=== PATIENT | male | born 1965 | race Caucasian/White ===

== ENCOUNTER 2016-09-17 21:12 | Inpatient (IN) | payer OTHER ==
[~2016-09-17] VITALS: Ht 175.3 cm; Wt 101.1 kg
[2016-09-17] MEDS ORDERED: MoRPHine SULFATE 4 MG/ML 1 ML CARP\\VIAL IV STA ×2 (21:39→23:26)
[2016-09-17] MEDS ORDERED: ONDANSETRON INJ 2 MG/ML 2 ML VIAL IV STA (21:39)
[2016-09-17] MEDS ORDERED: SODIUM CHLORIDE 0.9% 1000ML 1,000 ML IV STA (21:39)
[2016-09-17 21:55] LABS: BASO % 0.3 %; BASO ABS # 0.05 K/uL (0-0.2); COMPLETE YES; EOS % 1.5 %; HEMATOCRIT 45.5 % (42-52); IG% 0.3 %; LYMPH % 17.8 %; LYMPH ABS # 2.85 K/uL (1.2-3.4); MEAN CELL VOLUME 90.1 fL (80-100); MEAN CORPUSCULAR HEMOGLOBIN 32.1 pg (25-34); MEAN CORPUSCULAR HGB CONC 35.6 g/dl (32-36); MONO % 7.2 %; NEUT % 72.9 %; PLATELET COUNT 258 K/uL (130-400); RED BLOOD COUNT 5.05 M/uL (4.7-6.1)
[2016-09-17] MEDS ORDERED: IBUP-1050 PO (21:58)
[2016-09-17 22:19] LABS: CALCIUM 8.9 mg/dl (8.5-10.1); CREATININE 1.2 mg/dl (0.60-1.40); POTASSIUM 3.8 mmol/L (3.5-5.1)
[2016-09-17] MEDS ORDERED: OPTIRAY 320 IV PRN (22:30)
--- NOTE | 2016-09-17 22:49 | DIAGNOSTIC IMAGING REPORT ---
ABDOMEN AND PELVIS CT WITH IV CONTRAST CT DOSE: 845.56 mGy.cm HISTORY: Abscess eval lower abd cutaneous abscess TECHNIQUE: Multiaxial CT images of the abdomen and pelvis were performed following the use of intravenous contrast. COMPARISON STUDY: None. FINDINGS: Lung bases are clear. Liver spleen and pancreas enhance uniformly. Several slightly hyperemic loops of small bowel are present in the left central abdominal region. This consistent with a nonspecific enteritis and/or mild nonobstructive ileus. Bladder is midline. There is no free fluid within the pelvic cul-de-sac. There is no significant abdominal pelvic or inguinal adenopathy area Within the subcutaneous fat anterior to the symphysis pubis on the right is narrowing of infiltrative change consistent with a cellulitis type process. This measures approximately 11 x 4 cm. A well-defined drainable abscess or collection is not appreciated. IMPRESSION: 1. 11 x 4 cm region of cellulitis and/or infiltrative-type change subcutaneous fat anterior and somewhat superior to the right central symphysis pubis region. 2. No evidence for drainable abscess or collection. 3. Mild reactive small bowel ileus versus enteritis. 4. No evidence for extension of the subcutaneous fat process to the intra-pelvic or intra- abdominal region. Electronically signed by: Viet Haro M.D. 09/17/2016 10:47 PM
[2016-09-17] MEDS ORDERED: PIPERACILLIN/TAZOBACTAM 4.5 GM/100ML D5W IV STA (22:54)
[2016-09-17] MEDS ORDERED: VANCOMYCIN 1GM/270ML NSS IV STA (22:56)
--- NOTE | 2016-09-17 23:44 | EMERGENCY ROOM VISIT NOTE ---
ED Visit Note First contact with patient: 21:29 Chief Complaint: I have a lump in my groin and on my head and also my right arm hurts. History of Present Illness: Mr. Bennett is a 51-year-old white male who ambulates into the ED accompanied by female friend with multiple complaints. Historically patient denies any significant past medical history. Patient reports approximately 2 weeks ago he started having back pain in the lower cervical and upper thoracic area. He reports the pain was severe. Associated with his pain he reports he had numbness and tingling sensations in the right upper extremity. Last week he was seen at an urgent care center and was prescribed a Medrol Dosepak. He now reports that the neck pain has resolved but he continues to have paresthesias and intermittent shocking-like pains go down the right upper extremity. Additionally he reports approximately 4 days ago he noted a pimple-like lesion in the left parietal area. He reports he has been squeezing the area and has been draining pus out of this lesion and it is starting to grow in size. He is also noted an increasing pain in this area and mild redness. Additionally he reports that 2 days ago he noticed a small lump in the suprapubic area of the abdomen. He reports he did not squeeze this lump but has noticed that it has been increasing in size and redness over the last 2 days. He is also noted an increase in pain. Currently he describes his pain as an achy and sharp sensation. He rates his discomfort 10/10. The pain is nonradiating. Pain worsens with palpation and when he is moving from the standing to sitting position. He has not identified any alleviating factors related to the pain. He has not taken any medications for pain prior to arrival at the hospital. Associated with his pain he reports he has not had fevers of 101+ degrees Fahrenheit and he has noted some purulent drainage from the area of redness. He denies other skin eruptions, headaches, dizziness, lightheadedness, neck/ back pain, upper respiratory tract symptoms, cough, wheezing, shortness of breath, chest pain, palpitations, dyspnea on exertion, abdominal pain, nausea, vomiting, diarrhea, constipation, rectal bleeding, black/tarry stools, urinary symptoms, hematuria, testicular redness/swelling. Review of Systems: As noted above in history of present illness. All body systems were reviewed and found to be negative as noted above. Past Medical History: Patient denies. Current Medications: Ibuprofen. Allergies to Medications: Patient denies. Social History: Patient is not employed; he feels safe in his home environment; he admits to tobacco and alcohol use. Physical Examination: Vital Signs: Date Time Temp Pulse Resp B/P Pulse Ox O2 Delivery O2 Flow Rate FiO2 09/17/16 22:50 83 09/17/16 22:09 90 14 135/83 97 Room Air 09/17/16 21:17 37.6 94 18 143/101 97 Room Air GENERAL: 51-year-old male in mild to moderate distress due to pain, nontoxic- appearing, afebrile and hemodynamically stable. NEUROLOGICAL: Awake, alert and oriented to person, place and time. Answering questions appropriately and following commands. Normal gait. Good hand eye coordination. No focal motor sensory deficits. SKIN: Warm, dry and pink. Left Parietal Area: 3 cm abscess with purulent drainage at the opening of the wound he created from squeezing. Mild erythema surrounding the abscess. No lymphangitis. The area is warm and tender to palpation. Suprapubic Abdominal Area: Large area of cellulitis measuring approximately 17 x 5 cm. In the central area of this lesion patient does have a small 3-4 mm area that has ruptured open and has some dried pus in the lesion. There is no active drainage. No palpable abscess. The area is is hot to palpation. I do not appreciate any lymphangitis. There is no extension down into his penis or scrotum. Questionable right-sided lymphadenopathy. HEENT: Atraumatic and normocephalic. PERRLA. Sclera white and conjunctiva pink. No drainage from naris. Oral cavity moist and pink. Pharynx is nonerythematous or edematous. Speech normal. No lymphadenopathy. Trachea midline. No jugular venous distention. BACK: No tenderness over the bony spine. No CVA tenderness. THORAX: Lungs sounds are clear to auscultation and equal bilaterally with symmetrical chest wall. No wheezing, rales or rhonchi. No crepitus, tenderness , subcutaneous air or deformities noted. HEART: Regular rate and rhythm. No gallops, rubs or murmurs are appreciated. ABDOMEN: Obese, soft and nontender. Please note soft tissue description above. Positive bowel sounds in all quadrants. No guarding, rigidity or organomegaly. GENITALS: Mature penis. No erythema over the penis or the scrotum. No drainage from the penis meatus. Testicles have normal lie and are nontender or edematous. EXTREMITIES: Moves all extremities well on command and with purpose. All distal neurovascular statuses are intact and equal bilaterally. No calf tenderness or cords. Right Upper Extremity: No gross bony deformity. No tenderness over the scapula, clavicle or humerus. 5/5 muscle strength in flexion, extension, abduction and abduction of the shoulder, flexion and extension of the elbows. 2+ bicipital and tricipital deep tendon reflexes. Distal pulses are intact and capillary refill is brisk. He is able to distinguish light sensations through all dermatomes. ED Course: Patient is assessed as noted above. Laboratory Testing: Test 09/17/16 21:42 09/17/16 21:45 Range/Units Bedside Lactic Acid Venous 0.97 0.90-1.70 mmol/L White Blood Count 16.00 4.8-10.8 K/uL Red Blood Count 5.05 4.7-6.1 M/uL Hemoglobin 16.2 14.0-18.0 g/dL Hematocrit 45.5 42-52 % Mean Corpuscular Volume 90.1 80-100 fL Mean Corpuscular Hemoglobin 32.1 25-34 pg Mean Corpuscular Hemoglobin Concent 35.6 32-36 g/dl Platelet Count 258 130-400 K/uL Mean Platelet Volume 10.0 7.4-10.4 fL Neutrophils (%) (Auto) 72.9 % Lymphocytes (%) (Auto) 17.8 % Monocytes (%) (Auto) 7.2 % Eosinophils (%) (Auto) 1.5 % Basophils (%) (Auto) 0.3 % Neutrophils # (Auto) 11.67 1.4-6.5 K/uL Lymphocytes # (Auto) 2.85 1.2-3.4 K/uL Monocytes # (Auto) 1.15 0.11-0.59 K/uL Eosinophils # (Auto) 0.24 0-0.5 K/uL Basophils # (Auto) 0.05 0-0.2 K/uL RDW Standard Deviation 42.9 36.4-46.3 fL RDW Coefficient of Variation 13.1 11.5-14.5 % Immature Granulocyte % (Auto) 0.3 % Immature Granulocyte # (Auto) 0.04 0.00-0.02 K/uL Sodium Level 140 136-145 mmol/L Potassium Level 3.8 3.5-5.1 mmol/L Chloride Level 104 98-107 mmol/L Carbon Dioxide Level 27 21-32 mmol/L Anion Gap 9.0 3-11 mmol/L Blood Urea Nitrogen 14 7-18 mg/dl Creatinine 1.20 0.60-1.40 mg/dl Est Creatinine Clear Calc Drug Dose 87.3 ml/min Estimated GFR () 81.8 Estimated GFR (Non- 70.6 BUN/Creatinine Ratio 12.0 10-20 Random Glucose 88 70-99 mg/dl Calcium Level 8.9 8.5-10.1 mg/dl Total Bilirubin 0.5 0.2-1 mg/dl Direct Bilirubin 0.2 0-0.2 mg/dl Aspartate Amino Transf (AST/SGOT) 21 15-37 U/L Alanine Aminotransferase (ALT/SGPT) 40 12-78 U/L Alkaline Phosphatase 92 45-117 U/L Total Protein 8.8 6.4-8.2 gm/dl Albumin 4.0 3.4-5.0 gm/dl Blood Culture: Pending IV Contrast Abdominal/Pelvic CT: Was reviewed by myself and read by the radiologist showing 11 x 4 cm region of cellulitis/infiltrate changes in the subcutaneous fat anterior and somewhat superior to the right central pubic symphysis region. No evidence of drainable abscess or collection. Mild reactive small bowel ileus versus enteritis. No evidence of extension of the subcutaneous fat process into the intrapelvic or intra-abdominal region. Patient was hydrated with normal saline and received a total of 8 mg of morphine IV for pain, 4 mg of Zofran IV and was ordered 4.5 g of Zosyn IV and 2.8 gr vancomycin IV. Patient was reassessed multiple times during his stay in the emergency department. Patient's case was reviewed with Dr. Cole; we agreed on diagnostic approach, treatment, disposition and plan. Patient's case was reviewed with case management [facility]. Patient was educated about tonight's findings. Clinical Impression: Suprapubic abdominal cellulitis. Scalp abscess. Right upper extremity radicular symptoms. Decision-Making: Initially my differential diagnosis I considered abscess, cellulitis, gangrene and other causes. Disposition and Plan: Patient be brought in the hospital for observation/ admission by the hospitalist; please see his notes and orders for final disposition and plan.
[2016-09-18] MEDS ORDERED: ACETAMINOPHEN 325 MG TAB PO PRN
[2016-09-18] MEDS ORDERED: POLYETHYLENE (MIRALAX) 17 GM PACK PO PRN
[2016-09-18] MEDS ORDERED: ZOLPIDEM TARTRATE 5 MG TAB PO PRN
[2016-09-18] MEDS ORDERED: MAGNESIUM HYDROXIDE SUSP 30 ML UDC PO PRN
[2016-09-18] MEDS ORDERED: ALUMINUM/MAGNESIUM/SIMETH (MAALOX MAX) 30 ML UDC PO PRN
[2016-09-18 00:07] VITALS: O2SAT 97
[2016-09-18] MEDS ORDERED: VANCOMYCIN INJ 2,500 MG in SODIUM CHLORIDE 0.9% 500ML 500 ML IV STA (00:13)
--- NOTE | 2016-09-18 00:51 | HISTORY & PHYSICAL EXAMINATION ---
DATE OF ADMISSION: 09/18/2016 REASON FOR ADMISSION: Cellulitis and abscess. HISTORY OF PRESENT ILLNESS: This is a 51-year-old male, who denies a significant medical history, but does not normally follow up with a physician. He had a pimple on the left upper scalp, which he popped 2 or 3 days ago and developed significant redness and swelling in the area. He then developed redness and swelling around a pimple in his suprapubic region and presented to the hospital for evaluation. He describes significant pain in addition to fevers at home. The patient has cellulitis, both of his scalp and suprapubic region on initial examination. He will be admitted for IV antibiotics. PAST MEDICAL HISTORY: He denies a significant past medical history, aside from chronic back pain. MEDICATIONS: He takes only ibuprofen as needed. SOCIAL HISTORY: The patient smokes a half a pack of cigarettes daily. He states that he is on disability and does not work currently, due to chronic back pain, although he could not provide specifics regarding the nature of the condition. He does not drink significant quantities of alcohol. FAMILY HISTORY: Father from heart disease. Mother is alive, has only osteoarthritis. REVIEW OF SYSTEMS: GENERAL: Describes a fever, denies weakness, malaise or weight loss. CARDIOVASCULAR: Denies chest pain, palpitations, PND, orthopnea. RESPIRATORY: Denies productive cough, shortness of breath or wheezing. GASTROINTESTINAL: Denies nausea, vomiting, diarrhea, constipation. SKIN: Positive for redness, pain and swelling of the left upper scalp in addition to the suprapubic region, as above. All other systems reviewed and negative. PHYSICAL EXAMINATION: VITAL SIGNS: Blood pressure is 135/83, heart rate 90, respirations 16, temperature 37.6 on arrival. GENERAL: This is an overweight middle aged male. He is awake, alert, oriented x3, in no distress. HEAD AND NECK: There is a 1-cm open abscess with some surrounding cellulitis in the left upper scalp. Pharynx is normal. No thrush or icterus. HEART: S1, S2 regular. No audible murmurs. LUNGS: Clear to auscultation bilaterally. ABDOMEN: Tender in the suprapubic area, redness extends downward over the groins bilaterally. There is a small pimple-like lesion located centrally, suprapubically. EXTREMITIES: No clubbing, cyanosis or edema. SKIN: As per the extremity and head and neck exam. NEUROLOGIC: He is ambulatory, maintains his coordination, does not exhibit any focal deficits. LABORATORY DATA: White count 16, hemoglobin 16.2, platelets 258. Sodium 146, potassium 3.8, chloride 104, CO2 27, BUN 14, creatinine 1.2, glucose 88. A CT of the abdomen and pelvis was done. There is an 11 x 4 cm region of cellulitis subcutaneously, right central to the symphysis pubis, no evidence for drainable abscess or collection. ASSESSMENT AND PLAN: This is a 51-year-old male, without a significant medical history, who presents with cellulitis, both of his left upper scalp and suprapubic region. He will be admitted with the followin. Cellulitis. The area on the scalp may require drainage, we will reevaluate a.m. and consider a dermatology or surgical consult. The patient will be placed on Clindamycin, vancomycin, pending wound culture results. He will be treated for his pain and provided with IV hydration. 2. Chronic back pain. He has been provided with narcotics for his cellulitis. Normally, he uses ibuprofen for his back pain. 3. Heparin has been provided for deep venous thrombosis prophylaxis. The patient is a full code. Total time for this admit, including chart review, discussion with the ER physician, review of labs, imaging, previous records, 34 minutes. SISSY
[2016-09-18 02:05] VITALS: Ht 175.3 cm; Wt 101.1 kg
[2016-09-18 02:11] VITALS: BP 122/80; PULSE 87; TEMP 37.5; O2SAT 97
[2016-09-18] MEDS: OXYCODONE/ACETAMINOPHEN 10/325MG TAB PO PRN ×3 (02:35→18:41)
[2016-09-18] MEDS ORDERED: VANCOMYCIN CONSULT ACTIVE PRN (03:45)
[2016-09-18] MEDS ORDERED: INFLUENZA VIRUS QUAD VACCINE 0.5 ML SYR IM. ONE (04:30)
[2016-09-18] MEDS ORDERED: PNEUMOCOCCAL POLYSACCHARIDES 25 MCG/0.5 ML VIAL/SYR IM. ONE (04:30)
[2016-09-18] MEDS ORDERED: INFLUENZA ADMINISTRATION CHARGE ONE (04:30)
[2016-09-18] MEDS ORDERED: PNEUMOCOCCAL ADMINISTRATION CHARGE ONE (04:30)
[2016-09-18] MEDS: D5NSS + 20MEQ KCL 1,000 ML IV SCH ×3 (04:40→20:25)
[2016-09-18] MEDS: ONDANSETRON INJ 2 MG/ML 2 ML VIAL IV PRN ×2 (04:46→18:40)
[2016-09-18 05:05] LABS: URINE APPEARANCE CLEAR (CLEAR); URINE BILIRUBIN NEG (NEG); URINE COLOR YELLOW; URINE NITRITE NEG (NEG); URINE SPECIFIC GRAVITY > 1.045 (1.000-1.030); UROBILINOGEN NEG (NEG)
[2016-09-18 05:08] LABS: MANUAL MICROSCOPIC REQUIRED? NO; REVIEW REQ? NO
[2016-09-18] MEDS ORDERED: CLINDAMYCIN IV 600 MG in DEXTROSE 5% ADD-VANTAGE 50ML 50 ML IV SCH (06:00)
[2016-09-18 06:16] LABS: INR 1.1 (0.9-1.1); PROTHROMBIN TIME (PATIENT) 11.3 SECONDS (9.0-12.0)
[2016-09-18 07:00] VITALS: BP 108/72; PULSE 75; TEMP 36.7; O2SAT 95
[2016-09-18] MEDS: HEPARIN SOD 5000 UNIT/0.5 ML CARP SQ SCH ×3 (07:14→21:29)
[2016-09-18] MEDS: HYDROmorphone INJ 1 MG/ML SYR IV PRN ×3 (08:32→19:51)
[2016-09-18] MEDS ORDERED: VANCOMYCIN INJ 1,000 MG in SODIUM CHLORIDE 0.9% 250ML 250 ML IV SCH (09:00)
[2016-09-18] MEDS: LACTOBACILLUS ACIDOPHILUS (FLORANEX) TAB PO SCH ×4 (09:55→20:26)
[2016-09-18] MEDS: VANCOMYCIN INJ 1,500 MG in SODIUM CHLORIDE 0.9% 500ML 500 ML IV SCH ×2 (09:55→21:30)
--- NOTE | 2016-09-18 10:14 | Hospitalist Progress Note ---
Hospitalist Progress Note Date of Service Sep 18, 2016. (Bobbi Treadwell PA-C) 09/18/16 (Sarmad Steen MD) Subjective Patient notes that the pain is better. Denies any fever or chills overnight. Additional Comments: 6 system review negative. Please see pertinent positives in the history of present illness section. (Bobbi Treadwell PA-C) Pt evaluation today including: conversation w/ patient, physical exam, chart review, review of studies, review of inpatient medication list Constitutional: No fever ENT: No hearing loss Respiratory: No cough Abdomen: No pain Male : No dysuria Neurologic: No memory loss Psychiatric: No depression symptoms Endo: No fatigue (Sarmad Steen MD) Objective Vital Signs Date Time Temp Pulse Resp B/P Pulse Ox O2 Delivery O2 Flow Rate FiO2 09/18/16 07:25 Room Air 09/18/16 07:00 36.7 75 16 108/72 95 Room Air 09/18/16 02:11 37.5 87 18 122/80 97 Room Air 09/18/16 02:05 Room Air 09/18/16 02:05 Room Air 09/18/16 00:07 37.4 88 16 128/79 97 Room Air 09/17/16 22:50 83 09/17/16 22:09 90 14 135/83 97 Room Air 09/17/16 21:17 37.6 94 18 143/101 97 Room Air (Bobbi Treadwell PA-C) Physical Exam General Appearance: no apparent distress ENT: + pertinent finding (approximately 1 cm abscess with a scab noted to the left parietal region. no significant surrounding erythema noted.) Neck: no JVD Respiratory/Chest: lungs clear Cardiovascular: no edema Abdomen: normal bowel sounds, soft, + pertinent finding (significant erythema and induration noted over the suprapubic region with a centralized small pustule. No erythema or edema of the scrotum) Extremities: non-tender, no pedal edema Neurologic/Psychiatric: no motor/sensory deficits Skin: warm/dry, + pertinent finding (changes as noted above) (oBbbi Treadwell PA-C) General Appearance: WD/WN, no apparent distress Eyes: normal inspection, EOMI ENT: hearing grossly normal, pharynx normal Neck: supple, no JVD Respiratory/Chest: normal breath sounds, no accessory muscle use Cardiovascular: no edema, no JVD Abdomen: no organomegaly, + pertinent finding (lower abdomen redness and warm to touch, confluent mass, tenderness is present) Neurologic/Psychiatric: normal mood/affect Skin: normal color, no rash (Sarmad Steen MD) Laboratory Results Last 24 Hours Test 09/17/16 21:42 09/17/16 21:45 09/18/16 04:47 09/18/16 05:45 Bedside Lactic Acid Venous 0.97 mmol/L White Blood Count 16.00 K/uL Red Blood Count 5.05 M/uL Hemoglobin 16.2 g/dL Hematocrit 45.5 % Mean Corpuscular Volume 90.1 fL Mean Corpuscular Hemoglobin 32.1 pg Mean Corpuscular Hemoglobin Concent 35.6 g/dl Platelet Count 258 K/uL Mean Platelet Volume 10.0 fL Neutrophils (%) (Auto) 72.9 % Lymphocytes (%) (Auto) 17.8 % Monocytes (%) (Auto) 7.2 % Eosinophils (%) (Auto) 1.5 % Basophils (%) (Auto) 0.3 % Neutrophils # (Auto) 11.67 K/uL Lymphocytes # (Auto) 2.85 K/uL Monocytes # (Auto) 1.15 K/uL Eosinophils # (Auto) 0.24 K/uL Basophils # (Auto) 0.05 K/uL RDW Standard Deviation 42.9 fL RDW Coefficient of Variation 13.1 % Immature Granulocyte % (Auto) 0.3 % Immature Granulocyte # (Auto) 0.04 K/uL Sodium Level 140 mmol/L Potassium Level 3.8 mmol/L Chloride Level 104 mmol/L Carbon Dioxide Level 27 mmol/L Anion Gap 9.0 mmol/L Blood Urea Nitrogen 14 mg/dl Creatinine 1.20 mg/dl Est Creatinine Clear Calc Drug Dose 87.3 ml/min Estimated GFR () 81.8 Estimated GFR (Non- 70.6 BUN/Creatinine Ratio 12.0 Random Glucose 88 mg/dl Calcium Level 8.9 mg/dl Total Bilirubin 0.5 mg/dl Direct Bilirubin 0.2 mg/dl Aspartate Amino Transf (AST/SGOT) 21 U/L Alanine Aminotransferase (ALT/SGPT) 40 U/L Alkaline Phosphatase 92 U/L Total Protein 8.8 gm/dl Albumin 4.0 gm/dl Urine Color YELLOW Urine Appearance CLEAR Urine pH 5.0 Urine Specific [place] > 1.045 Urine Protein NEG Urine Glucose (UA) NEG Urine Ketones NEG Urine Occult Blood NEG Urine Nitrite NEG Urine Bilirubin NEG Urine Urobilinogen NEG Urine Leukocyte Esterase NEG Prothrombin Time 11.3 SECONDS Prothromb Time International Ratio 1.1 (Bobbi Treadwell PA-C) Assessment and Plan 51-year-old male presents emergency department with a scalp abscess and a lower abdominal abscess -Continue vancomycin/clindamycin -Continue IVF -Continue Dilaudid for now for pain control -Await blood cultures Chronic back pain -Continue Dilaudid as noted above -Patient typically takes ibuprofen as needed for back pain DVT prophylaxis -Heparin -TEDS, SCDs CODE STATUS -LEVEL I FULL CODE (Bobbi Treadwell, PA-C) 51-year-old male presents emergency department with a scalp abscess and a lower abdominal abscess lower abdominal abscess Continue vancomycin/clindamycin iv consult surgery for drainage/debridement Continue IVF Continue Dilaudid for now for pain control Await blood cultures cultures Chronic back pain Continue Dilaudid as noted above Patient typically takes ibuprofen as needed for back pain DVT prophylaxis Heparin sq TEDS, SCDs CODE STATUS: FULL CODE (Sarmad Steen MD)
--- NOTE | 2016-09-18 12:01 | Pharmacy Progress Note ---
Pharmacy Antibiotic Consult Date of Service: Sep 18, 2016. Pharmacy Dosing Scope Pharmacy is consulted to initiate vancomycin IV dosing therapy, order appropriate labs and adjust drug dose/frequency. Subjective The patient is a 51 year old male admitted on Sep 18, 2016 at 00:02 with cellulitis on his scalp and suprapubic region. Objective Height (Feet): 5 Height (Inches): 9.00 Weight (Kilograms): 101.100 Lab Results (24hrs): Laboratory Tests Test 09/17/16 21:45 BUN/Creatinine Ratio 12.0 Blood Urea Nitrogen 14 mg/dl Creatinine 1.20 mg/dl White Blood Count 16.00 K/uL Red Blood Count 5.05 M/uL Hemoglobin 16.2 g/dL Hematocrit 45.5 % Mean Corpuscular Volume 90.1 fL Mean Corpuscular Hemoglobin 32.1 pg Mean Corpuscular Hemoglobin Concent 35.6 g/dl Platelet Count 258 K/uL Mean Platelet Volume 10.0 fL Neutrophils (%) (Auto) 72.9 % Lymphocytes (%) (Auto) 17.8 % Monocytes (%) (Auto) 7.2 % Eosinophils (%) (Auto) 1.5 % Basophils (%) (Auto) 0.3 % Neutrophils # (Auto) 11.67 K/uL Lymphocytes # (Auto) 2.85 K/uL Monocytes # (Auto) 1.15 K/uL Eosinophils # (Auto) 0.24 K/uL Basophils # (Auto) 0.05 K/uL Assessment & Plan Loading dose: vancomycin 2500 mg (24.7 mg/kg) IV X 1 dose then: vancomycin 1500 mg IV every 10 hours (15 mg/kg; population pharmacokinetics suggest a half-life of 9.1 hr and an elimination constant of 0.076 hr-1). Goal peak level estimate: between 35 - 40 mcg/mL. Goal trough level estimate: between 15 - 20 mcg/mL (indication is cellulitis but unsure if this is MRSA--> therefore will dose slightly higher until this is eliminated) Trough has been ordered for: prior to 11 am dose. CLINDAMYCIN: consider only using for 2-3 days for anti-toxin effect. Otherwise, this would be duplicate therapy with vancomycin. Pharmacy will continue to follow and will adjust dose/frequency as necessary. Thank you
[2016-09-18] MEDS: CLINDAMYCIN IV 600 MG in DEXTROSE 5% ADD-VANTAGE 50ML 50 ML IV SCH ×2 (13:11→20:25)
[2016-09-18] MEDS ORDERED: LIDOCAINE HCL 1% 20 ML VIAL ONE (14:20)
[2016-09-18] MEDS ORDERED: BACITRACIN OINT 15 GM TUBE EXT PRN (14:30)
[2016-09-18] MEDS ORDERED: NURSING VERBAL MED ORDER ONE (14:30)
[2016-09-18 15:34] VITALS: BP 110/75; PULSE 70; TEMP 36.7; O2SAT 95
--- NOTE | 2016-09-18 15:54 | [facility] Post Operative Brief Note ---
Immediate Operative Summary Operative Date Sep 18, 2016. Pre-Operative Diagnosis cellulitis and abscess on scalp and lower abdominal wall Post-Operative Diagnosis same Procedure(s) Performed I/D abscess on scalp and lower abdominal wall Surgeon Tanmay Toure Scoop Driver Surgeon(s) nurse Estimated Blood Loss 5ml Findings cellulitis and abscess Specimens wound culture sent Drains packing the wound, lower abdominal wound Anesthesia local Complication(s) None Disposition at bedside
--- NOTE | 2016-09-18 16:02 | History and Physical ---
History & Physical Date & Time of Service: Sep 18, 2016 at 15:55 Chief Complaint: Cellulitis And Abscess Of Face Primary Care Physician: No Doctor, Assigned History of Present Illness Source: patient : This is a 51-year-old male, who denies a significant medical history, but does not normally follow up with a physician. He had a pimple on the left upper scalp, which he popped 2 or 3 days ago and developed significant redness and swelling in the area. He then developed redness and swelling around a pimple in his suprapubic region and presented to the hospital for evaluation. He describes significant pain in addition to fevers at home. The patient has cellulitis and abscess, both of his scalp and suprapubic region on initial examination. He will be admitted for IV antibiotics. some drainage from scalp and lower abdominal wall, pt denies fever, Social History Smoking Status: Current Every Day Smoker Smokeless Tobacco Use: No Alcohol Use: occasionally Drug Use: none Allergies Coded Allergies: No Known Allergies (Unverified , 09/17/16) Home Medications Scheduled PRN Ibuprofen (Advil), 400-800 MG PO BID PRN for Pain Review of Systems Constitutional: No chills, No fatigue, No fever, No problem reported, No sweats , No weakness, No weight loss Eyes: No diplopia, No discharge, No eye pain, No problem reported, No redness, No worsening of vision ENT: No dental problems, No hearing loss, No nasal symptoms, No problem reported, No sore throat, No tinnitus, No trouble swallowing, No unusual epistaxis Respiratory: No cough, No dyspnea at rest, No dyspnea on exertion, No hemoptysis, No problem reported, No shortness of breath, No sputum, No wheezing Cardiovascular: No PND, No chest pain, No claudication, No edema, No orthopnea , No palpitations, No problem reported Abdomen: + pain Musculoskeletal: No calf pain, No joint pain, No muscle pain, No problem reported, No swelling Neurologic: No balance problems, No memory loss, No numbness/tingling, No paralysis, No problem reported, No vertigo, No weakness Psychiatric: No anhedonism, No anxiety, No depression symptoms, No insomnia, No problem reported, No substance abuse Endocrine: No excessive thirst, No excessive urination, No fatigue, No problem reported Allergic / Immunologic: No environmental allergies, No food allergies, No frequent infections, No hives, No pet sensitivities, No poor healing, No problem reported, No prolonged convalescence, No seasonal allergies Physical Exam Vital Signs Date Time Temp Pulse Resp B/P Pulse Ox O2 Delivery O2 Flow Rate FiO2 09/18/16 15:34 36.7 70 18 110/75 95 Room Air 09/18/16 07:25 Room Air 09/18/16 07:00 36.7 75 16 108/72 95 Room Air 09/18/16 02:11 37.5 87 18 122/80 97 Room Air 09/18/16 02:05 Room Air 09/18/16 02:05 Room Air 09/18/16 00:07 37.4 88 16 128/79 97 Room Air 09/17/16 22:50 83 09/17/16 22:09 90 14 135/83 97 Room Air 09/17/16 21:17 37.6 94 18 143/101 97 Room Air General Appearance: WD/WN (cellulitis and abscess on scalp,) Eyes: normal inspection ENT: normal ENT inspection Neck: supple, no adenopathy Respiratory/Chest: chest non-tender, lungs clear Cardiovascular: regular rate, rhythm, no edema Abdomen/GI: normal bowel sounds, non tender, soft (some cellulitis and abscess on lower abdomoinal wall, size [id number], ) Genitourinary - Male: normal male genitalia Back: normal inspection Extremities/Musculoskelatal: normal inspection, no calf tenderness, normal capillary refill, normal range of motion Neurologic/Psych: no motor/sensory deficits Lymphatic: no adenopathy Diagnostics Laboratory Results Results Past 24 Hours Test 09/17/16 21:42 09/17/16 21:45 09/18/16 04:47 09/18/16 05:45 Range/Units Bedside Lactic Acid Venous 0.97 0.90-1.70 mmol/L White Blood Count 16.00 4.8-10.8 K/uL Red Blood Count 5.05 4.7-6.1 M/uL Hemoglobin 16.2 14.0-18.0 g/dL Hematocrit 45.5 42-52 % Mean Corpuscular Volume 90.1 80-100 fL Mean Corpuscular Hemoglobin 32.1 25-34 pg Mean Corpuscular Hemoglobin Concent 35.6 32-36 g/dl Platelet Count 258 130-400 K/uL Mean Platelet Volume 10.0 7.4-10.4 fL Neutrophils (%) (Auto) 72.9 % Lymphocytes (%) (Auto) 17.8 % Monocytes (%) (Auto) 7.2 % Eosinophils (%) (Auto) 1.5 % Basophils (%) (Auto) 0.3 % Neutrophils # (Auto) 11.67 1.4-6.5 K/uL Lymphocytes # (Auto) 2.85 1.2-3.4 K/uL Monocytes # (Auto) 1.15 0.11-0.59 K/uL Eosinophils # (Auto) 0.24 0-0.5 K/uL Basophils # (Auto) 0.05 0-0.2 K/uL RDW Standard Deviation 42.9 36.4-46.3 fL RDW Coefficient of Variation 13.1 11.5-14.5 % Immature Granulocyte % (Auto) 0.3 % Immature Granulocyte # (Auto) 0.04 0.00-0.02 K/uL Sodium Level 140 136-145 mmol/L Potassium Level 3.8 3.5-5.1 mmol/L Chloride Level 104 98-107 mmol/L Carbon Dioxide Level 27 21-32 mmol/L Anion Gap 9.0 3-11 mmol/L Blood Urea Nitrogen 14 7-18 mg/dl Creatinine 1.20 0.60-1.40 mg/dl Est Creatinine Clear Calc Drug Dose 87.3 ml/min Estimated GFR () 81.8 Estimated GFR (Non- 70.6 BUN/Creatinine Ratio 12.0 10-20 Random Glucose 88 70-99 mg/dl Calcium Level 8.9 8.5-10.1 mg/dl Total Bilirubin 0.5 0.2-1 mg/dl Direct Bilirubin 0.2 0-0.2 mg/dl Aspartate Amino Transf (AST/SGOT) 21 15-37 U/L Alanine Aminotransferase (ALT/SGPT) 40 12-78 U/L Alkaline Phosphatase 92 45-117 U/L Total Protein 8.8 6.4-8.2 gm/dl Albumin 4.0 3.4-5.0 gm/dl Urine Color YELLOW Urine Appearance CLEAR CLEAR Urine pH 5.0 4.5-7.5 Urine Specific [place] > 1.045 1.000-1.030 Urine Protein NEG NEG Urine Glucose (UA) NEG NEG Urine Ketones NEG NEG Urine Occult Blood NEG NEG Urine Nitrite NEG NEG Urine Bilirubin NEG NEG Urine Urobilinogen NEG NEG Urine Leukocyte Esterase NEG NEG Prothrombin Time 11.3 9.0-12.0 SECONDS Prothromb Time International Ratio 1.1 0.9-1.1 Microbiology Results 09/17/16 Blood Culture, Received Pending 09/17/16 Blood Culture, Received Pending 09/18/16 MRSA DNA Surveillance Screen - Final, Complete Specimen Positive for MRSA by DNA Probe 09/18/16 Gram Stain, Received Pending 09/18/16 Wound Culture, Received Pending 09/18/16 Gram Stain, Received Pending 09/18/16 Wound Culture, Received Pending Impression Assessment and Plan IMP: cellulitis and abscess on scalp and lower abdominal wall, Plan: I/D abscess on scalp and lower abdominal wall, D/W benefits, risk and alternatives of the procedure. the risks- infection, bleeding, sepsis, pt understood, he signed consent, under local anesthesia, I/D abscess on scalp and lower abdominal wall, he tolerated the procedure well, the wound culture sent. Advanced Directives Existing Advance Directive: No Existing Living Will: No Existing Power of Soaking Room Operator: No VTE Prophylaxis VTE Risk Assessment Done? Y/N: Yes Risk Level: Low
--- NOTE | 2016-09-18 16:47 | OPERATIVE REPORT ---
DATE OF OPERATION: 09/18/2016 PREOPERATIVE DIAGNOSIS: Abscess cellulitis scalp and lower abdominal wall. POSTOPERATIVE DIAGNOSIS: Same. PROCEDURE: I\T\D abscess scalp and lower abdominal wall. SURGEON: Tanmay PLATA M.D. ANESTHESIA: Local. ESTIMATED BLOOD LOSS: About 5 mL. FINDINGS: Abscess on scalp and lower abdominal wall. Drainage and packing the wound lower abdominal wall. COMPLICATIONS: None. INDICATIONS FOR THE PROCEDURE: This is a 51-year-old gentleman who was admitted to hospital for cellulitis and abscess on the scalp and lower abdominal wall. The patient will be required to do I\T\D. After I did history and physical exam I did talk to the patient about the benefit and risk alternate procedure. I indicated the risks may include but not limited such as infection, bleeding, sepsis, the patient understands. He signed informed consent and I answered all questions. DETAILS OF PROCEDURE: We prepared to do the I\T\D abscess on the patient's bedside. Once we get informed consent. The patient had cellulitis abscess on the scalp, also another cellulitis abscess on the lower abdominal wall. The scalp area was prepped and draped in routine sterile fashion. After time out, I injection local anesthesia by using 1% lidocaine around the scalp area. Then I made the incision, there was some pus coming out. I did send wound culture. Hemostasis was obtained. Then, we put some bacitracin and put a dressing on. I then moved onto the lower abdominal wall abscess and cellulitis abscess area around the 10 X 10 cm most of the cellulitis. The lower abdominal wall was prepped and draped in routine sterile fashion. After a timeout, I injection the local anesthesia by using 1% lidocaine around the abscess. Then I made a small incision, there was some pus come out. We did send wound culture, packing the wound with strip , hemostasis obtained. Then we put the dressing on. The patient tolerated the procedure well. After procedure, I gave the patient the postop care instruction. We will follow up the patient tomorrow. Specimen sent wound culture. I attest to the content of the Intraoperative Record and any orders documented therein. Any exceptions are noted below. MTDD
[2016-09-18 23:19] VITALS: BP 126/86; PULSE 73; TEMP 36.8; O2SAT 96
[2016-09-19] MEDS: D5NSS + 20MEQ KCL 1,000 ML IV SCH (04:17)
[2016-09-19] MEDS: CLINDAMYCIN IV 600 MG in DEXTROSE 5% ADD-VANTAGE 50ML 50 ML IV SCH ×3 (04:17→19:47)
[2016-09-19] MEDS: HYDROmorphone INJ 1 MG/ML SYR IV PRN (04:34)
[2016-09-19] MEDS: HEPARIN SOD 5000 UNIT/0.5 ML CARP SQ SCH ×3 (06:25→21:45)
[2016-09-19] MEDS: VANCOMYCIN INJ 1,500 MG in SODIUM CHLORIDE 0.9% 500ML 500 ML IV SCH (06:27)
[2016-09-19] MEDS: OXYCODONE/ACETAMINOPHEN 10/325MG TAB PO PRN ×3 (06:34→20:48)
[2016-09-19 06:37] LABS: BASO % 0.5 %; BASO ABS # 0.04 K/uL (0-0.2); COMPLETE YES; EOS % 3.2 %; HEMATOCRIT 37.3 % (42-52); IG% 0.2 %; LYMPH % 27.6 %; LYMPH ABS # 2.35 K/uL (1.2-3.4); MEAN CELL VOLUME 90.8 fL (80-100); MEAN CORPUSCULAR HEMOGLOBIN 30.4 pg (25-34); MEAN CORPUSCULAR HGB CONC 33.5 g/dl (32-36); MEAN PLATELET VOLUME 9.9 fL (7.4-10.4); MONO % 9.6 %; NEUT % 58.9 %; PLATELET COUNT 219 K/uL (130-400); RED BLOOD COUNT 4.11 M/uL (4.7-6.1); WHITE BLOOD COUNT 8.52 K/uL (4.8-10.8)
[2016-09-19 07:12] VITALS: BP 120/88; PULSE 74; TEMP 36.8; O2SAT 96
[2016-09-19 07:31] LABS: BUN/CREATININE RATIO 10.6 (10-20); CALCIUM 8.2 mg/dl (8.5-10.1); CREATININE 0.88 mg/dl (0.60-1.40)
[2016-09-19] MEDS: LACTOBACILLUS ACIDOPHILUS (FLORANEX) TAB PO SCH ×4 (08:13→19:47)
[2016-09-19] MEDS ORDERED: VANCOMYCIN TROUGH SCH ×2 (10:30→16:30)
[2016-09-19] MEDS ORDERED: NURSING VERBAL MED ORDER ONE (10:45)
[2016-09-19] MEDS: CYCLOBENZAPRINE HCL 10 MG TAB PO PRN (13:35)
--- NOTE | 2016-09-19 13:39 | DIAGNOSTIC IMAGING REPORT ---
RIGHT SHOULDER MIN 2 VIEWS ROUTINE CLINICAL HISTORY: Right shoulder pain. COMPARISON: None. DISCUSSION: No fractures or dislocations are visualized. There are no visible particular calcifications. There are old right-sided rib fractures. IMPRESSION: No fractures dislocations or destructive lesions are visualized Electronically signed by: Fernando Thompson M.D. 09/19/2016 1:38 PM
--- NOTE | 2016-09-19 14:20 | Surgery Progress Note ---
Surgery Progress Note Date of Service Sep 19, 2016. Subjective Post OP Day: 1 + feeling well F/U S/P I/D abscess on scalp and lower abdominal wall, pt is doing better, less pain, less redness, no fever. wound culture- staph, Objective Vital Signs: Date Time Temp Pulse Resp B/P Pulse Ox O2 Delivery O2 Flow Rate FiO2 09/19/16 08:15 Room Air 09/19/16 07:12 36.8 74 16 120/88 96 Room Air 09/18/16 23:19 36.8 73 16 126/86 96 Room Air 09/18/16 19:40 Room Air 09/18/16 15:34 36.7 70 18 110/75 95 Room Air General Appearance: WD/WN Head: normocephalic Neck: supple Respiratory/Chest: chest non-tender, lungs clear Cardiovascular: regular rate, rhythm, no edema, no gallop Abdomen: normal bowel sounds, soft, + tenderness Incision(s): clean, dry Extremities: normal range of motion, non-tender Laboratory Results: Results Past 24 Hours Test 09/19/16 05:49 Range/Units White Blood Count 8.52 4.8-10.8 K/uL Red Blood Count 4.11 4.7-6.1 M/uL Hemoglobin 12.5 14.0-18.0 g/dL Hematocrit 37.3 42-52 % Mean Corpuscular Volume 90.8 80-100 fL Mean Corpuscular Hemoglobin 30.4 25-34 pg Mean Corpuscular Hemoglobin Concent 33.5 32-36 g/dl Platelet Count 219 130-400 K/uL Mean Platelet Volume 9.9 7.4-10.4 fL Neutrophils (%) (Auto) 58.9 % Lymphocytes (%) (Auto) 27.6 % Monocytes (%) (Auto) 9.6 % Eosinophils (%) (Auto) 3.2 % Basophils (%) (Auto) 0.5 % Neutrophils # (Auto) 5.02 1.4-6.5 K/uL Lymphocytes # (Auto) 2.35 1.2-3.4 K/uL Monocytes # (Auto) 0.82 0.11-0.59 K/uL Eosinophils # (Auto) 0.27 0-0.5 K/uL Basophils # (Auto) 0.04 0-0.2 K/uL RDW Standard Deviation 43.0 36.4-46.3 fL RDW Coefficient of Variation 13.0 11.5-14.5 % Immature Granulocyte % (Auto) 0.2 % Immature Granulocyte # (Auto) 0.02 0.00-0.02 K/uL Sodium Level 139 136-145 mmol/L Potassium Level 4.0 3.5-5.1 mmol/L Chloride Level 105 98-107 mmol/L Carbon Dioxide Level 27 21-32 mmol/L Anion Gap 7.0 3-11 mmol/L Blood Urea Nitrogen 9 7-18 mg/dl Creatinine 0.88 0.60-1.40 mg/dl Est Creatinine Clear Calc Drug Dose 119.0 ml/min Estimated GFR () 116.9 Estimated GFR (Non- 100.9 BUN/Creatinine Ratio 10.6 10-20 Random Glucose 90 70-99 mg/dl Calcium Level 8.2 8.5-10.1 mg/dl Microbiology Results 09/18/16 Gram Stain - Final, Resulted 09/18/16 Wound Culture - Preliminary, Resulted Staphylococcus Aureus 09/18/16 Gram Stain - Final, Resulted 09/18/16 Wound Culture - Preliminary, Resulted Staphylococcus Aureus Assessment & Plan IMP : S/P I/D abscess. I repacking the wound, continue IV antibiotic, Will F/U, january D/C home on Saturday,
--- NOTE | 2016-09-19 14:22 | Hospitalist Progress Note ---
Hospitalist Progress Note Date of Service Sep 19, 2016. (Bobbi Treadwell PA-C) 09/19/16 agree with PA note (Sarmad Steen MD) Subjective Pt evaluation today including: conversation w/ patient, physical exam, chart review, lab review, review of studies, conversation w/ technical assistance consultant, review of inpatient medication list Patient reports decreased discomfort in the lower abdomen. Denies fever or chills overnight. Overall feeling better. He is complaining of some right shoulder discomfort. This is worse with movement. He does not remember any injuries, however he was shoveling snow a lot recently. It does not spread across his chest. He denies any shortness of breath. It is not pleuritic in nature. Additional Comments: 6 system review negative. Please see pertinent positives in the history of present illness section. (Bobbi Treadwell PA-C) Pt evaluation today including: conversation w/ patient, physical exam, chart review, review of studies, review of inpatient medication list Constitutional: No fever ENT: No hearing loss Cardiovascular: No chest pain Abdomen: No pain Male : No dysuria Neurologic: No memory loss Psychiatric: No depression symptoms (Sarmad Steen MD) Objective Vital Signs Date Time Temp Pulse Resp B/P Pulse Ox O2 Delivery O2 Flow Rate FiO2 09/19/16 08:15 Room Air 09/19/16 07:12 36.8 74 16 120/88 96 Room Air 09/18/16 23:19 36.8 73 16 126/86 96 Room Air 09/18/16 19:40 Room Air 09/18/16 15:34 36.7 70 18 110/75 95 Room Air (Bobbi Treadwell PA-C) Physical Exam General Appearance: + mild distress (mild discomfort) Eyes: EOMI ENT: + pertinent finding (decreased erythema and swelling surrounding the abscess in the left parietal region. Small amount of purulent drainage noted.) Neck: no JVD Respiratory/Chest: lungs clear Cardiovascular: regular rate, rhythm Abdomen: soft, + pertinent finding (decreased erythema in the lower abdomen. Small amount of purulent drainage from the incised abscess. Packing present. No foul odor noted.) Extremities: no pedal edema Neurologic/Psychiatric: no motor/sensory deficits, oriented x 3 Skin: warm/dry Notes: THORAX/EXTREMITIES: No point tenderness elicited over the RIGHT shoulder. Full range of motion. Pain with resistance against flexion. Tenderness to palpation noted over the scapular area and the right axilla area. Tenderness over the right upper trapezius muscle noted. Sensation over the deltoid is intact (Bobbi Treadwell, PAIjeomaC) General Appearance: WD/WN, no apparent distress Eyes: normal inspection, EOMI ENT: hearing grossly normal, pharynx normal Neck: supple, no JVD Respiratory/Chest: chest non-tender, normal breath sounds Cardiovascular: regular rate, rhythm, no gallop Abdomen: + pertinent finding (drain in place, cellulitis improving) Extremities: normal range of motion, no pedal edema Neurologic/Psychiatric: alert, normal mood/affect Skin: no rash (Sarmad Steen MD) Laboratory Results Last 24 Hours Test 09/19/16 05:49 White Blood Count 8.52 K/uL Red Blood Count 4.11 M/uL Hemoglobin 12.5 g/dL Hematocrit 37.3 % Mean Corpuscular Volume 90.8 fL Mean Corpuscular Hemoglobin 30.4 pg Mean Corpuscular Hemoglobin Concent 33.5 g/dl Platelet Count 219 K/uL Mean Platelet Volume 9.9 fL Neutrophils (%) (Auto) 58.9 % Lymphocytes (%) (Auto) 27.6 % Monocytes (%) (Auto) 9.6 % Eosinophils (%) (Auto) 3.2 % Basophils (%) (Auto) 0.5 % Neutrophils # (Auto) 5.02 K/uL Lymphocytes # (Auto) 2.35 K/uL Monocytes # (Auto) 0.82 K/uL Eosinophils # (Auto) 0.27 K/uL Basophils # (Auto) 0.04 K/uL RDW Standard Deviation 43.0 fL RDW Coefficient of Variation 13.0 % Immature Granulocyte % (Auto) 0.2 % Immature Granulocyte # (Auto) 0.02 K/uL Sodium Level 139 mmol/L Potassium Level 4.0 mmol/L Chloride Level 105 mmol/L Carbon Dioxide Level 27 mmol/L Anion Gap 7.0 mmol/L Blood Urea Nitrogen 9 mg/dl Creatinine 0.88 mg/dl Est Creatinine Clear Calc Drug Dose 119.0 ml/min Estimated GFR () 116.9 Estimated GFR (Non- 100.9 BUN/Creatinine Ratio 10.6 Random Glucose 90 mg/dl Calcium Level 8.2 mg/dl (Bobbi Treadwell PA-C) Last 24 Hours Test 09/19/16 05:49 White Blood Count 8.52 K/uL Red Blood Count 4.11 M/uL Hemoglobin 12.5 g/dL Hematocrit 37.3 % Mean Corpuscular Volume 90.8 fL Mean Corpuscular Hemoglobin 30.4 pg Mean Corpuscular Hemoglobin Concent 33.5 g/dl Platelet Count 219 K/uL Mean Platelet Volume 9.9 fL Neutrophils (%) (Auto) 58.9 % Lymphocytes (%) (Auto) 27.6 % Monocytes (%) (Auto) 9.6 % Eosinophils (%) (Auto) 3.2 % Basophils (%) (Auto) 0.5 % Neutrophils # (Auto) 5.02 K/uL Lymphocytes # (Auto) 2.35 K/uL Monocytes # (Auto) 0.82 K/uL Eosinophils # (Auto) 0.27 K/uL Basophils # (Auto) 0.04 K/uL RDW Standard Deviation 43.0 fL RDW Coefficient of Variation 13.0 % Immature Granulocyte % (Auto) 0.2 % Immature Granulocyte # (Auto) 0.02 K/uL Sodium Level 139 mmol/L Potassium Level 4.0 mmol/L Chloride Level 105 mmol/L Carbon Dioxide Level 27 mmol/L Anion Gap 7.0 mmol/L Blood Urea Nitrogen 9 mg/dl Creatinine 0.88 mg/dl Est Creatinine Clear Calc Drug Dose 119.0 ml/min Estimated GFR () 116.9 Estimated GFR (Non- 100.9 BUN/Creatinine Ratio 10.6 Random Glucose 90 mg/dl Calcium Level 8.2 mg/dl (Sarmad Steen MD) Assessment and Plan 51-year-old male presents emergency department with a scalp abscess and a lower abdominal abscess status post bedside I and D on 09/18. Cultures growing staph aureus. Sensitivities pending. -Continue vancomycin/clindamycin -Surgery following. Likely will change packing today or tomorrow. -Continue Dilaudid for now for pain control -Await blood cultures Right shoulder/right scapular pain. This appears to be musculoskeletal as it is worse with range of motion and resistance with flexion. -Obtain shoulder x-ray ? tendinitis -Try Flexeril 10 mg PO TID Chronic back pain -Continue Dilaudid as noted above -Patient typically takes ibuprofen as needed for back pain DVT prophylaxis -Heparin -TEDS, SCDs CODE STATUS -LEVEL I FULL CODE (Bobbi Treadwell, NATY) 51-year-old male presents emergency department with a scalp abscess and a lower abdominal abscess status post bedside I and D on 09/18. Cultures growing staph aureus. Sensitivities pending. Abdominal abscess/cellulitis, skin scalp abscess s/p I/D on 09/18/16 Continue IV clindamycin, stop IV vancomycin Surgery following. Likely will change packing today or tomorrow. Continue iv Dilaudid for now for pain control Await blood cultures results Right shoulder/right scapular pain. This appears to be musculoskeletal as it is worse with range of motion and resistance with flexion. shoulder x-ray no fractures Flexeril 10 mg PO TID Chronic back pain Continue Dilaudid IV Prn Patient typically takes ibuprofen as needed for back pain DVT prophylaxis Heparin sq CODE STATUS FULL CODE (Sarmad Steen MD)
[2016-09-19 15:21] VITALS: BP 120/81; PULSE 76; TEMP 36.5; O2SAT 95
[2016-09-19] MEDS: ONDANSETRON INJ 2 MG/ML 2 ML VIAL IV PRN (21:52)
[2016-09-19 23:51] VITALS: BP 125/71; PULSE 74; TEMP 36.7; O2SAT 97
[2016-09-20] MEDS: CLINDAMYCIN IV 600 MG in DEXTROSE 5% ADD-VANTAGE 50ML 50 ML IV SCH ×3 (03:40→20:08)
[2016-09-20] MEDS: HEPARIN SOD 5000 UNIT/0.5 ML CARP SQ SCH ×3 (06:08→21:52)
[2016-09-20 07:04] VITALS: BP 119/80; PULSE 70; TEMP 36.8; O2SAT 94
[2016-09-20 07:42] LABS: BASO % 0.4 %; BASO ABS # 0.04 K/uL (0-0.2); COMPLETE YES; EOS % 4.1 %; HEMATOCRIT 37.5 % (42-52); IG% 0.3 %; LYMPH ABS # 2.59 K/uL (1.2-3.4); MEAN CELL VOLUME 88.4 fL (80-100); MEAN CORPUSCULAR HEMOGLOBIN 30.4 pg (25-34); MEAN CORPUSCULAR HGB CONC 34.4 g/dl (32-36); MEAN PLATELET VOLUME 9.6 fL (7.4-10.4); MONO % 7.5 %; NEUT % 58.7 %; PLATELET COUNT 245 K/uL (130-400); RED BLOOD COUNT 4.24 M/uL (4.7-6.1); WHITE BLOOD COUNT 8.93 K/uL (4.8-10.8)
[2016-09-20] MEDS: LACTOBACILLUS ACIDOPHILUS (FLORANEX) TAB PO SCH ×4 (08:08→20:08)
[2016-09-20] MEDS: OXYCODONE/ACETAMINOPHEN 10/325MG TAB PO PRN ×2 (08:16→14:39)
--- NOTE | 2016-09-20 11:52 | DIAGNOSTIC IMAGING REPORT ---
CERVICAL SPINE 7 VIEWS HISTORY: Pain. Radiculopathy. R arm/shoulder pain, ? Cervical radiculopathy COMPARISON: None. FINDINGS: The cervical spine is visualized from C1 through the superior endplate of T1. There is no fracture. Slight subluxation of the lateral elements of the C1-C2 complex. Appearances suggestive of a component of torticollis. Minimal degenerative intervertebral this changes throughout. Prevertebral soft tissues and the atlantodens interval are intact. IMPRESSION: Findings suggesting mild torticollis. Mild degenerative intervertebral disc change. Electronically signed by: Viet Haro M.D. 09/20/2016 11:50 AM
--- NOTE | 2016-09-20 12:20 | Hospitalist Progress Note ---
Hospitalist Progress Note Date of Service Sep 20, 2016. (Bobbi Treadwell PA-C) 09/20/16 agree with PA note (Sarmad Steen MD) Subjective Pt evaluation today including: conversation w/ patient, physical exam, chart review, lab review, review of studies, review of inpatient medication list abd pain at site of abscess 50% better. Scalp abscess 100% better. No fevers , chills. R shoulder pain also improved Additional Comments: 6 system review negative. Please see pertinent positives in the history of present illness section. (Bobbi Treadwell PA-C) Pt evaluation today including: conversation w/ patient, physical exam, chart review, review of studies, review of inpatient medication list Constitutional: No fever, No weight loss ENT: No hearing loss Respiratory: No cough, No shortness of breath Abdomen: No pain Male : No dysuria Psychiatric: No depression symptoms (Sarmad Steen MD) Objective Vital Signs Date Time Temp Pulse Resp B/P Pulse Ox O2 Delivery O2 Flow Rate FiO2 09/20/16 08:05 Room Air 09/20/16 07:04 36.8 70 16 119/80 94 Room Air 09/19/16 23:51 36.7 74 16 125/71 97 Room Air 09/19/16 19:30 Room Air 09/19/16 15:55 Room Air 09/19/16 15:21 36.5 76 18 120/81 95 Room Air (Bobbi Treadwell PA-C) Physical Exam General Appearance: no apparent distress ENT: + pertinent finding (significant improvement of the left parietal region abscess. No erythema. No edema. No significant drainage noted.) Neck: no JVD Respiratory/Chest: normal breath sounds Cardiovascular: regular rate, rhythm Abdomen: soft, + pertinent finding (erythema continues to decrease around the abscess in the suprapubic region. There is noticeable increased drainage from the site. Packing in place.) Extremities: non-tender, no pedal edema Neurologic/Psychiatric: no motor/sensory deficits, oriented x 3 Skin: warm/dry (Bobbi Treadwell PA-C) General Appearance: WD/WN, no apparent distress Eyes: normal inspection, EOMI ENT: hearing grossly normal, pharynx normal Neck: supple, no JVD Respiratory/Chest: normal breath sounds, no respiratory distress Cardiovascular: no edema, no JVD Abdomen: normal bowel sounds, + pertinent finding (drain and packing in place, redness and swelling improved) Extremities: normal range of motion Neurologic/Psychiatric: no motor/sensory deficits (Sarmad Steen MD) Laboratory Results Last 24 Hours Test 09/20/16 07:20 White Blood Count 8.93 K/uL Red Blood Count 4.24 M/uL Hemoglobin 12.9 g/dL Hematocrit 37.5 % Mean Corpuscular Volume 88.4 fL Mean Corpuscular Hemoglobin 30.4 pg Mean Corpuscular Hemoglobin Concent 34.4 g/dl Platelet Count 245 K/uL Mean Platelet Volume 9.6 fL Neutrophils (%) (Auto) 58.7 % Lymphocytes (%) (Auto) 29.0 % Monocytes (%) (Auto) 7.5 % Eosinophils (%) (Auto) 4.1 % Basophils (%) (Auto) 0.4 % Neutrophils # (Auto) 5.23 K/uL Lymphocytes # (Auto) 2.59 K/uL Monocytes # (Auto) 0.67 K/uL Eosinophils # (Auto) 0.37 K/uL Basophils # (Auto) 0.04 K/uL RDW Standard Deviation 40.5 fL RDW Coefficient of Variation 12.6 % Immature Granulocyte % (Auto) 0.3 % Immature Granulocyte # (Auto) 0.03 K/uL Creatinine 1.00 mg/dl Est Creatinine Clear Calc Drug Dose 104.8 ml/min Estimated GFR () 102.0 Estimated GFR (Non- 88.0 (Bobbi Treadwell, PAIjeomaC) Assessment and Plan 51-year-old male presents emergency department with a scalp abscess and a lower abdominal abscess status post bedside I and D on 09/18. Cultures growing MRSA -Continue clindamycin. Vanc discontinued -Surgery following. Package changed yesterday -Avoid IV Dilaudid for pain if possible. Continue Percocet 2 tabs every 4 hours as needed -Blood cx-neg to date Right shoulder/right scapular pain. X-rays performed yesterday consistent with old rib fractures. The patient did have a fall a few months back. He does continue to complain of pain in the shoulder radiating down his arm. -C-spine films-? Cervical radiculopathy. If negative, patient will likely need MRI of the shoulder as an outpatient Chronic back pain -Wean narcotics on possible DVT prophylaxis -Heparin -TEDS, SCDs CODE STATUS -LEVEL I FULL CODE (Bobbi Treadwell, NATY) A 51-year-old male presents emergency department with 1. scalp abscess and a lower abdominal abscess status post bedside I and D on 09/18. Cultures growing MRSA Continue clindamycin IV. may change to po when ready to d/c home IV Vanc discontinued Surgery following. Package changed yesterday Avoid IV Dilaudid for pain if possible. Continue Percocet 2 tabs every 4 hours as needed Blood cx is neg to date 2. Right shoulder/right scapular pain. X-rays performed yesterday consistent with old rib fractures. The patient did have a fall a few months back. He does continue to complain of pain in the shoulder radiating down his arm. C-spine films: Findings suggesting mild torticollis. Mild degenerative intervertebral disc change. may consider MRI of the shoulder as an outpatient 3. Chronic back pain Wean narcotics on possible DVT prophylaxis Heparin sq CODE STATUS FULL CODE (Sarmad Steen MD)
--- NOTE | 2016-09-20 14:39 | Surgery Progress Note ---
Surgery Progress Note Date of Service Sep 20, 2016. Subjective Post OP Day: 2 + feeling well F/U S/P I/D abscess, pt is doing better, no fever, less pain, the wound is less drainage, I did repacking the wound today. Objective Vital Signs: Date Time Temp Pulse Resp B/P Pulse Ox O2 Delivery O2 Flow Rate FiO2 09/20/16 08:05 Room Air 09/20/16 07:04 36.8 70 16 119/80 94 Room Air 09/19/16 23:51 36.7 74 16 125/71 97 Room Air 09/19/16 19:30 Room Air 09/19/16 15:55 Room Air 09/19/16 15:21 36.5 76 18 120/81 95 Room Air General Appearance: WD/WN Head: normocephalic Neck: supple Respiratory/Chest: chest non-tender, lungs clear Cardiovascular: regular rate, rhythm, no edema Abdomen: normal bowel sounds, non tender, non distended Incision(s): dry Extremities: normal range of motion, non-tender, normal inspection Laboratory Results: Results Past 24 Hours Test 09/20/16 07:20 Range/Units White Blood Count 8.93 4.8-10.8 K/uL Red Blood Count 4.24 4.7-6.1 M/uL Hemoglobin 12.9 14.0-18.0 g/dL Hematocrit 37.5 42-52 % Mean Corpuscular Volume 88.4 80-100 fL Mean Corpuscular Hemoglobin 30.4 25-34 pg Mean Corpuscular Hemoglobin Concent 34.4 32-36 g/dl Platelet Count 245 130-400 K/uL Mean Platelet Volume 9.6 7.4-10.4 fL Neutrophils (%) (Auto) 58.7 % Lymphocytes (%) (Auto) 29.0 % Monocytes (%) (Auto) 7.5 % Eosinophils (%) (Auto) 4.1 % Basophils (%) (Auto) 0.4 % Neutrophils # (Auto) 5.23 1.4-6.5 K/uL Lymphocytes # (Auto) 2.59 1.2-3.4 K/uL Monocytes # (Auto) 0.67 0.11-0.59 K/uL Eosinophils # (Auto) 0.37 0-0.5 K/uL Basophils # (Auto) 0.04 0-0.2 K/uL RDW Standard Deviation 40.5 36.4-46.3 fL RDW Coefficient of Variation 12.6 11.5-14.5 % Immature Granulocyte % (Auto) 0.3 % Immature Granulocyte # (Auto) 0.03 0.00-0.02 K/uL Creatinine 1.00 0.60-1.40 mg/dl Est Creatinine Clear Calc Drug Dose 104.8 ml/min Estimated GFR () 102.0 Estimated GFR (Non- 88.0 Assessment & Plan IMP : S/P I/D abscess. I repacking the wound, continue IV antibiotic, pt can take a shower today, pt can go home tomorrow, pt can do packing the wound by pt. bactrim 800/160 one tab po bid x 10 days. Will F/U in my office in 1 week sign off today. IMP : S/P I/D abscess. I repacking the wound, continue IV antibiotic, Will F/U, january D/C home on Saturday,
[2016-09-20 15:27] VITALS: BP 137/92; PULSE 85; TEMP 37; O2SAT 96
[2016-09-20] MEDS: HYDROmorphone INJ 1 MG/ML SYR IV PRN (17:55)
[2016-09-20] MEDS: CYCLOBENZAPRINE HCL 10 MG TAB PO PRN (21:51)
[2016-09-20 23:53] VITALS: BP 135/89; PULSE 73; TEMP 37.2; O2SAT 95
[2016-09-21] MEDS: CLINDAMYCIN IV 600 MG in DEXTROSE 5% ADD-VANTAGE 50ML 50 ML IV SCH ×2 (03:47→12:47)
[2016-09-21] MEDS: HEPARIN SOD 5000 UNIT/0.5 ML CARP SQ SCH ×2 (06:04→14:44)
[2016-09-21 06:42] LABS: BASO % 0.7 %; BASO ABS # 0.07 K/uL (0-0.2); COMPLETE YES; EOS % 4.1 %; HEMATOCRIT 40.8 % (42-52); IG% 0.5 %; LYMPH % 23.4 %; LYMPH ABS # 2.38 K/uL (1.2-3.4); MEAN CELL VOLUME 88.9 fL (80-100); MEAN CORPUSCULAR HEMOGLOBIN 30.9 pg (25-34); MEAN CORPUSCULAR HGB CONC 34.8 g/dl (32-36); MEAN PLATELET VOLUME 10.1 fL (7.4-10.4); MONO % 8.5 %; NEUT % 62.8 %; PLATELET COUNT 321 K/uL (130-400); RED BLOOD COUNT 4.59 M/uL (4.7-6.1); WHITE BLOOD COUNT 10.17 K/uL (4.8-10.8)
[2016-09-21 07:26] LABS: CREATININE 1.2 mg/dl (0.60-1.40)
[2016-09-21 08:09] VITALS: BP 96/68; PULSE 69; TEMP 36.8; O2SAT 93
[2016-09-21] MEDS: LACTOBACILLUS ACIDOPHILUS (FLORANEX) TAB PO SCH ×2 (09:34→12:46)
--- NOTE | 2016-09-21 12:35 | Surgery Progress Note ---
Surgery Progress Note Date of Service Sep 21, 2016. Subjective + feeling well pt is doing fine, aleksandra wound is better, it is dry, no redness, I just did repacking the wound. Objective Vital Signs: Date Time Temp Pulse Resp B/P Pulse Ox O2 Delivery O2 Flow Rate FiO2 09/21/16 08:15 Room Air 09/21/16 08:09 36.8 69 18 96/68 93 Room Air 09/20/16 23:55 Room Air 09/20/16 23:53 37.2 73 16 135/89 95 Room Air 09/20/16 15:35 Room Air 09/20/16 15:27 37.0 85 18 137/92 96 Room Air General Appearance: WD/WN Neck: supple Respiratory/Chest: chest non-tender, lungs clear Cardiovascular: regular rate, rhythm, no edema Abdomen: normal bowel sounds, non tender, non distended Incision(s): dry Laboratory Results: Results Past 24 Hours Test 09/21/16 05:55 Range/Units White Blood Count 10.17 4.8-10.8 K/uL Red Blood Count 4.59 4.7-6.1 M/uL Hemoglobin 14.2 14.0-18.0 g/dL Hematocrit 40.8 42-52 % Mean Corpuscular Volume 88.9 80-100 fL Mean Corpuscular Hemoglobin 30.9 25-34 pg Mean Corpuscular Hemoglobin Concent 34.8 32-36 g/dl Platelet Count 321 130-400 K/uL Mean Platelet Volume 10.1 7.4-10.4 fL Neutrophils (%) (Auto) 62.8 % Lymphocytes (%) (Auto) 23.4 % Monocytes (%) (Auto) 8.5 % Eosinophils (%) (Auto) 4.1 % Basophils (%) (Auto) 0.7 % Neutrophils # (Auto) 6.39 1.4-6.5 K/uL Lymphocytes # (Auto) 2.38 1.2-3.4 K/uL Monocytes # (Auto) 0.86 0.11-0.59 K/uL Eosinophils # (Auto) 0.42 0-0.5 K/uL Basophils # (Auto) 0.07 0-0.2 K/uL RDW Standard Deviation 40.9 36.4-46.3 fL RDW Coefficient of Variation 12.7 11.5-14.5 % Immature Granulocyte % (Auto) 0.5 % Immature Granulocyte # (Auto) 0.05 0.00-0.02 K/uL Creatinine 1.20 0.60-1.40 mg/dl Est Creatinine Clear Calc Drug Dose 87.3 ml/min Estimated GFR () 81.8 Estimated GFR (Non- 70.6 Assessment & Plan IMP : S/P I/D abscess. I repacking the wound, pt can go home today, pt can do packing the wound by pt. bactrim 800/160 one tab po bid x 10 days. Will F/U in my office in 1 week sign off today. IMP : S/P I/D abscess. I repacking the wound, continue IV antibiotic, pt can take a shower today, pt can go home tomorrow, pt can do packing the wound by pt. bactrim 800/160 one tab po bid x 10 days. Will F/U in my office in 1 week sign off today.
[2016-09-21] MEDS: OXYCODONE/ACETAMINOPHEN 10/325MG TAB PO PRN (12:44)
[2016-09-21] MEDS ORDERED: SULF800T23 PO (14:25)
[2016-09-21] MEDS ORDERED: OXYC-57 PO (14:25)
[2016-09-21] MEDS ORDERED: FLX10 PO (14:25)
[2016-09-21 14:31] VITALS: BP 96/68; PULSE 69; TEMP 36.8; O2SAT 93
--- NOTE | 2016-09-21 14:40 | Discharge Instructions ---
Discharge Instructions Admission Reason for Admission: Cellulitis And Abscess Of Face (Bobbi Treadwell PA-C) Discharge Discharge Diagnosis / Problem: cellulitis, abscess scalp and abdomen (Bobbi Treadewll PA-C) Discharge Goals Goal(s): Therapeutic intervention (Bobbi Treadwell PA-C) Activity Recommendations Activity Limitations: per Instructions/Follow-up section Lifting Limitations: no more than 10 pounds (until follow up with surgery) (Bobbi Treadwell PA-C) Instructions / Follow-Up Instructions / Follow-Up Please wash your abdomen at least daily with soapy water. Keep the area clean. Please do packing once daily as directed by nursing staff and Dr. Toure It is very important for you to finish the entire course of antibiotics Ibuprofen 600 mg every 6 hours for pain Percocet 1-2 tabs every 4 hours for severe pain. Do not drink alcohol or drive while taking this medication. This may be taken with ibuprofen, but avoid Tylenol. Please follow-up with Dr. Toure in 1 week Is also important for you to see your primary care physician within one week Return to the emergency department if you have any of the following symptoms: -Fever of 101F or greater -Increasing redness or swelling -Chest pain -Shortness of breath -Worsening pain (Bobbi Treadwell PA-C) Current Hospital Diet Patient's current hospital diet: Regular Diet (Bobbi Treadwell PA-C) Discharge Diet Recommended Diet: Regular Diet (Bobbi Treadwell PA-C) Procedures Procedures Performed: I/D abscess on scalp and lower abdominal wall (Bobbi Treadwell PA-C) Pending Studies Studies pending at discharge: no (Bobbi Treadwell PA-C) Medical Emergencies . Who to Call and When: Medical Emergencies: If at any time you feel your situation is an emergency, please call 911 immediately. . (Bobbi Treadwell PA-C) Non-Emergent Contact Non-Emergency issues call your: Primary Care Provider, Surgeon . (Bobbi Treadwell PA-C) . "Provider Documentation" section prepared by Bobbi Treadwell. (Bobbi Treadwell, DISHA-C) VTE Core Measure Inpt VTE Proph given/why not?: Unfractionated heparin SQ, T.E.D. Stockings, SCD 's (Bobbi Treadwell, NATY) [place] Drug Monitoring Program Search Results: patient reviewed within database (Bobbi Treadwell PA-C) Reviewed: Pt Seen/Exam by Me (Regine Kohli, DO)
[2016-09-21] MEDS ORDERED: DIPHTHERIA/TETANUS/PERTUSSIS 0.5 ML SYR/VIAL IM. ONE (14:45)
[2016-09-21 14:55] VITALS: BP 125/80; PULSE 78; TEMP 36.7; O2SAT 95
--- NOTE | 2016-09-21 14:55 | Discharge Summary ---
Discharge Summary Admission Date: Sep 18, 2016 at 00:02 Discharge Date: Sep 21, 2016 Discharge Disposition: Home Principal Diagnosis: scalp, abdominal abscess Problems/Secondary Diagnoses: chronic back pain R shoulder pain MRSA Procedures: I&D abscess scalp and abdomen Consultations: gen surg (Bobbi Treadwell PA-C) Medication Reconciliation New Medications: Oxycodone/Acetaminophen 5MG/325MG (Percocet 5MG/325MG) Tab 1-2 TABS PO Q4H PRN for Pain, #18 TAB Sulfamethoxazole-Trimethoprim (Bactrim Ds 800MG/160MG) 1 Tab Tab 1 TAB PO BID for 10 Days, #20 TAB Cyclobenzaprine HCl (Cyclobenzaprine HCl) 10 Mg Tab 10 MG PO TID PRN for muscle spasms, #20 TAB Continued Medications: Ibuprofen (Advil) 200 Mg Tab 400-800 MG PO BID PRN for Pain, TAB Referrals At Discharge Follow up Referrals: Surgery Referral - Within 1 Week with Tanmay Toure MD Discharge Exam feeling well today. Pain much better. No fevers. Review of Systems: Constitutional: No fever Respiratory: No cough, No shortness of breath Cardiovascular: No chest pain Abdomen: No nausea Physical Exam: General Appearance: no apparent distress, + pertinent finding (abscess on scalp is healing well. No signs of erythema or edema. No drainage noted.) Eyes: EOMI Neck: no JVD Respiratory/Chest: lungs clear Cardiovascular: regular rate, rhythm Abdomen / GI: normal bowel sounds, non tender, soft, + pertinent finding ( significantly decreased erythema noted to the lower abdomen. Abscess still open with packing. Minimal purulent drainage) Extremities: no calf tenderness, no pedal edema Neurologic/Psychiatric: no motor/sensory deficits, oriented x 3 Skin: warm/dry (Bobbi Treadwell, PA-C) Hospital Course 51-year-old male presents emergency department with a scalp abscess and a lower abdominal abscess fever admitted to medical floor -Started on clindamycin and Vanc -Gen surg consulted status post bedside I and D on 09/18. Cultures growing MRSA -Blood cx-neg to date -vanc d/c'ed cx-susceptible to clinda -d/c home on bactrim DS BID x 10 days -f/u sx in one week -will do daily packing at home Right shoulder/right scapular pain. -X-rays performed yesterday consistent with old rib fractures no signs of fx/ tendinitis/dislocation. The patient did have a fall a few months back. He does continue to complain of pain in the shoulder radiating down his arm. -C-spine films-? Cervical radiculopathy mild DDD . -patient will likely need MRI of the shoulder as an outpatient Chronic back pain -Wean narcotics -resume ibuprofen as needed at home DVT prophylaxis -Heparin -TEDS, SCDs CODE STATUS -LEVEL I FULL CODE Total Time Spent: Greater than 30 minutes This includes examination of the patient, discharge planning, medication reconciliation, and communication with other providers. (Bobbi Treadwell PA-C) Discharge Instructions Please refer to the electronic Patient Visit Report (Discharge Instructions) for additional information. (Bobbi Treadwell PA-C) Follow-Up general surgery 1 week PCP 1 week (Bobbi Treadwell PA-C) Additional Copies To Tanmay Toure MD Reviewed: Pt Seen/Exam by Me (Regine Kohli, ) History Pt reports feeling much improved. Has no pain to the I&D site on his scalp. 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 Pt and feel the color continues to improved. Pt has been tolerating PO without issue. No fever, n/v/d. Agree with HPI/ROS as noted. (Regine Kohli, ) General Appearance: WD/WN, no apparent distress Respiratory: normal breath sounds, no respiratory distress Cardiovascular: normal peripheral pulses, regular rate, rhythm Gastrointestinal: non tender, soft Extremities: non-tender, no pedal edema Neurologic/Psychiatric: alert, normal mood/affect Skin Characteristics: normal color, warm/dry (Regine Kohli, ) Assessment/Plan Agree with plan as outlined above Packing needs changed QD and this was done prior to d/c Pt and requesting HH for assistance with this on d/c Change abx to PO bactrim F/U with new PCP in the next 2 weeks Gen surg early next week (Regine Kohli, DO)
== END 2016-09-21 15:45 | disposition home or self-care (01) | DRG 581 ==
LOC: ENRESERVDT → ENRESERVTM → C.EDB 21:17 → UNDOADMIN 09-18 00:02 → C.3E 09-18 00:02
PROVIDERS: ADMIT Internal Medicine; ATTEND Family Medicine
PROC: 0W900ZZ Drainage of Head, Open Approach (ICD-10-PCS; principal; 2016-09-18)
PROC: 0W9F0ZZ Drainage of Abdominal Wall, Open Approach (ICD-10-PCS; 2016-09-18)
DX: L03.811 Cellulitis of head [any part, except face] (principal); L02.811 Cutaneous abscess of head [any part, except face]; G89.29 Other chronic pain; M54.9 Dorsalgia, unspecified; F17.210 Nicotine dependence, cigarettes, uncomplicated; Z82.49 Family history of ischemic heart disease and other diseases of the circulatory system; Z82.61 Family history of arthritis; Z79.1 Long term (current) use of non-steroidal anti-inflammatories (NSAID); L03.311 Cellulitis of abdominal wall; L02.211 Cutaneous abscess of abdominal wall; B95.62 Methicillin resistant Staphylococcus aureus infection as the cause of diseases classified elsewhere; M25.511 Pain in right shoulder